=== PATIENT | male | born 1990 | race Caucasian/White ===

== ENCOUNTER 2017-01-01 18:09 | Emergency (ER) | payer OTHER ==
[~2017-01-01] VITALS: Ht 180.3 cm; Wt 99.8 kg
[~2017-01-01 18:09] MED LIST: AMOX500C2 PO; ONDA4TAB8 SL; RT-ALBUINH IH
[2017-01-01] MEDS ORDERED: FEXO-14 PO (18:51)
--- NOTE | 2017-01-01 19:41 | Diagnostic Imaging Report ---
INDICATION: Fall with right knee pain. TECHNIQUE: AP, oblique, and lateral views of the right knee are obtained. FINDINGS: No fracture or acute bony abnormality is seen. There is no joint effusion. IMPRESSION: Negative right knee. Dictated by: Dictated on workstation # [id number]
[2017-01-01] MEDS ORDERED: NAPR500T3 PO (19:44)
--- NOTE | 2017-01-01 19:44 | ED Lower Extremity ---
General Chief Complaint: Trauma-Non Activation Stated Complaint: FELL AT WORK/R LEG KNEE PAIN Nursing Triage Note: patient reports slipping in oil at work at 1600. patient reports R knee pain radiates down to R foot. patient denies hitting head or LOC. denies taking medication for pain Nursing Sepsis Screen: No Definite Risk Source: patient History of Present Illness Time seen by provider: 19:22 Initial Comments PT STATES HE SLIPPED ON OIL AT WORK TODAY AROUND 1630--WORKS AT [employer] STATES HE TWISTED RIGHT KNEE, WAS HOLDING ON TO A RAIL, AND DID NOT FALL. NO PRIOR INJURY TO THIS KNEE NO PARESTHESIAS OR MOTOR DEFICITS NO OTHER INJURIES OR AREAS OF PAIN PCP: NONE Allergies and Home Medications Allergies Coded Allergies: diphenhydramine (Unverified Allergy, Unknown, 05/21/16) Home Medications Fexofenadine HCl 60 Mg Tablet, 60 MG PO, (Reported) Naproxen 500 Mg Tablet, 500 MG PO BID, #20 Prescribed by: JESSY BURNS on 01/01/171943 Constitutional: no symptoms reported Musculoskeletal: see HPI Skin: no symptoms reported Psychiatric/Neurological: No Symptoms Reported Past Wiopzyh-Awljlw-Lfnlyy Hx Patient Social History Alcohol Use: Denies Use Recreational Drug Use: No Smoking Status: Never a Smoker Recent Foreign Travel: No Contact w/Someone Who Travel: No Recent Infectious Disease Expo: No Recent Hopitalizations: No Seasonal Allergies Seasonal Allergies: No Surgeries HX Surgeries: No Respiratory Hx Respiratory Disorders: Yes Respiratory Disorders: Asthma Cardiovascular Hx Cardiac Disorders: No Neurological Hx Neurological Disorders: No Reproductive System Hx Reproductive Disorders: No Genitourinary Hx Genitourinary Disorders: No Gastrointestinal Hx Gastrointestinal Disorders: No Musculoskeletal Hx Musculoskeletal Disorders: No Endocrine Hx Endocrine Disorders: No HEENT HX ENT Disorders: No Cancer Hx Cancer: No Psychosocial Hx Psychiatric Problems: No Integumentary HX Skin/Integumentary Disorder: No Blood Transfusions Hx Blood Disorders: No Physical Exam Vital Signs Vital Sign - Last 12Hours 01/01/17 18:47 Temp 98.0 Pulse 86 Resp 18 B/P (MAP) 137/98 Pulse Ox 99 Capillary Refill : Less Than 3 Seconds General Appearance: WD/WN, no apparent distress Hips: bilateral hip non-tender Legs: bilateral leg non-tender Knees: left knee normal inspection, right knee bone tenderness, right knee soft tissue tenderness, right knee swelling (SLIGHT), right knee other (UNABLE TO DETERMINE LIGAMENT LAXITY DUE TO PT DISCOMFORT. HAS DIFFUSE TENDERNESS TO ENTIRE KNEE BOTH ANTERIOR OR POSTERIOR. ) Ankles: bilateral ankle normal inspection Feet: bilateral foot normal inspection Neurologic/Tendon: normal sensation, normal motor functions Neurologic/Psychiatric: lens hardener II-XII nml as tested, no motor/sensory deficits, alert, normal mood/affect, oriented x 3 Skin: normal color, warm/dry Splinting and Joint Reduction : Stephane wrap: Yes Immobilizers: 24 inch Knee Ordered: Crutches (HAS AT HOME) Progress/Results/Core Measures Results/Orders My Orders Orders - JESSY BURNS DO Knee, Right, 3 Views (01/01/17 19:26) Stephane Bandage (01/01/17 19:40) Crutches (01/01/17 19:40) Knee Immobilizer (01/01/17 19:40) Vital Signs/I&O Vital Sign - Last 12Hours 01/01/17 01/01/17 18:47 19:56 Temp 98.0 98.0 Pulse 86 86 Resp 18 18 B/P (MAP) 137/98 Pulse Ox 99 99 Blood Pressure Mean: 111 Diagnostic Imaging Comments XRAYS RIGHT KNEE--NO ACUTE PROCESS, PER RADIOLOGIST REPORT @ 1942 Reviewed: Reviewed by Me Departure Impression Impression: Primary Impression: Right knee sprain Disposition: 01 HOME, SELF-CARE Condition: Stable Departure-Patient Inst. Referrals: NO,LOCAL PHYSICIAN (PCP/Family) Primary Care Physician Patient Instructions: Knee Immobilizer (DC), Knee Sprain (DC) Add. Discharge Instructions: STEPHANE WRAP, IMMOBILIZER AND CRUTCHES AT ALL TIMES ELEVATE LEG MUCH POSSIBLE ICE TO AREA AT 20 MINUTE INTERVALS FOLLOW UP WITH WORKMAN'S COMP TOMORROW OR THURSDAY All discharge instructions reviewed with patient and/or family. Voiced understanding. Scripts Naproxen (Naproxen) 500 Mg Tablet 500 MG PO BID, #20 TAB Prov: JESSY BURNS DO 01/01/17 JESSY BURNS DO Jan 01, 2017 19:44
[2017-01-01 19:56] VITALS: BP 137/98
== END 2017-01-01 19:56 | disposition home or self-care (01) ==
LOC: EDUNIT# 18:09 → ER 18:12
DX: S83.91XA Sprain of unspecified site of right knee, initial encounter (principal); X50.9XXA Other and unspecified overexertion or strenuous movements or postures, initial encounter; Y92.512 Supermarket, store or market as the place of occurrence of the external cause; Y99.0 Civilian activity done for income or pay
CPT/HCPCS: 73562; 99283

== ENCOUNTER → 2017-01-13 | Outpatient (REF) ==
[~2017-01-13] MED LIST changes: +FEXO-14 PO; +NAPR500T3 PO
--- NOTE | 2017-01-13 16:00 | Diagnostic Imaging Report ---
PROCEDURE: MRI right joint lower extremity without contrast. TECHNIQUE: Multiplanar, multisequence MR imaging of the right knee was performed without contrast. COMPARISON: Right knee radiographs of 01/01/2017. INDICATION: Knee pain after injury. FINDINGS: MENISCI Medial meniscus: Normal. Lateral meniscus: Normal. LIGAMENTS ACL: Intact. PCL: Intact. MCL: Intact. LCL: The lateral collateral ligamentous complex is intact. EXTENSOR MECHANISM The extensor mechanism is intact. CARTILAGE The articular cartilage throughout all three compartments is preserved. Specifically, no acute chondral defect or osteochondral lesion. BONE No fracture, stress fracture or osteonecrosis. SOFT TISSUE: No knee effusion or Sher's cyst. IMPRESSION: 1. No internal derangement. Specifically, no meniscal tear or acute chondral injury. 2. The cruciate and collateral ligaments are intact. 3. No fracture or bone contusion. Dictated by: Dictated on workstation # [id number]
== END | disposition home or self-care (01) ==
LOC: OCC 14:52
PROVIDERS: ATTEND Nurse Practitioner Family
CPT/HCPCS: 73721

== ENCOUNTER 2018-06-15 06:25 | Emergency (ER) | payer OTHER ==
[~2018-06-15] VITALS: Ht 180.3 cm; Wt 90.7 kg
[~2018-06-15 06:25] MED LIST changes: +NAPR-915 PO; -NAPR500T3 PO
--- NOTE | 2018-06-15 07:02 | ED GI ---
General Chief Complaint: Abdominal/GI Problems Stated Complaint: BLOODY DIARRHEA,VOMITING Source of Information: Patient Exam Limitations: No Limitations History of Present Illness Date Seen by Provider: Jun 15, 2018 Time Seen by Provider: 06:45 Initial Comments Patient resists ER by private conveyance with chief complaint of one month of watery loose diarrhea. He says the last couple days he started seeing some red flecks of blood when he wipes and around the stool itself. He does not have a history of hemorrhoids or fissures nor is he having any rectal pain. He says he needs a note for work and wants some answers. He says in the past he was worked up for gallbladder with an ultrasound was negative. He's never had a HIDA scan. He did follow-up with his primary care doctor and they told him that it has been going on long enough to do any stool studies. He is unable to produce a stool sample today. He's not had any objective fevers. He has some nausea and occasional vomiting with it and was given some Zofran from his primary care doctor which worked wonderful for his nausea but it's ran out and now he needs some more. He denies smoking marijuana using recreational drugs. He says he occasionally will have a cigarette and occasionally has a drink with his last alcoholic intake being over a month. No history of medical disease except for childhood asthma for which she does not use anything now. No surgeries on the abdomen. No history of trauma. Allergies and Home Medications Allergies Coded Allergies: diphenhydramine (Unverified Allergy, Unknown, 05/21/16) Home Medications Naproxen 500 Mg Tablet, 500 MG PO BID Prescribed by: JESSY BURNS on 01/01/171943 Patient Home Medication List Home Medication List Reviewed: Yes Review of Systems Review of Systems Constitutional: No chills, No dizziness EENTM: No Blurred Vision, No Double Vision Respiratory: Denies Cough, Denies Shortness of Air Cardiovascular: Denies Chest Pain, Denies Edema Gastrointestinal: Denies Constipated; Diarrhea, Nausea; Denies Poor Appetite, Denies Poor Fluid Intake; Vomiting Genitourinary: Denies Discharge, Denies Drainage Past Yybtdxo-Fxwwkl-Iwmrcl Hx Patient Social History Alcohol Use: Occasionally Uses Recreational Drug Use: No Smoking Status: Current Someday Smoker Recent Foreign Travel: No Contact w/Someone Who Travel: No Recent Hopitalizations: No Seasonal Allergies Seasonal Allergies: No Past Medical History Surgeries: No Respiratory: Yes Asthma Cardiac: No Neurological: No Reproductive Disorders: No Gastrointestinal: No Musculoskeletal: No Endocrine: No Cancer: No Psychosocial: No Integumentary: No Blood Disorders: No Physical Exam Vital Signs Vital Signs - First Documented 06/15/18 06:37 Temp 98.8 Pulse 77 Resp 20 B/P (MAP) 142/88 (106) Pulse Ox 98 O2 Delivery Room Air Capillary Refill : Height/Weight/BMI Height: 5'11" Weight: 220lbs. oz. 99.664357rg; BMI Method:Stated General Appearance: WD/WN, no apparent distress HEENT: PERRL/EOMI, normal ENT inspection, TMs normal, pharynx normal (mucous membranes are moist) Respiratory: no respiratory distress, no accessory muscle use Cardiovascular: normal peripheral pulses, regular rate, rhythm, no edema Peripheral Pulses: 2+ Radial Pulses (R), 2+ Radial Pulses (L) Gastrointestinal: normal bowel sounds, soft, tenderness (mild generalized tenderness), other (negative for Palma's point tenderness, Rovsing sign, psoas sign, mesenteric signs, Palma's sign) Progress/Results/Core Measures Results/Orders Vital Signs/I&O 06/15/18 06:37 Temp 98.8 Pulse 77 Resp 20 B/P (MAP) 142/88 (106) Pulse Ox 98 O2 Delivery Room Air Progress Progress Note : Time: 07:01 Progress Note IBS versus IBD versus potential biliary hypokinesis etc. We'll recommend that he follow up outpatient with primary care or a general surgeon to consider a HIDA scan and then possibly colonoscopy for his vague symptoms. He is unable to produce a stool sample today but we will send him with outpatient orders in case he can produce a stool to check a stool sample. We will refill his nausea medicine and give him a day off work. Departure Impression Primary Impression: Diarrhea Qualified Codes: R19.7 - Diarrhea, unspecified Disposition: 01 HOME, SELF-CARE Condition: Stable Departure-Patient Inst. Decision time for Depature: 07:04 Referrals: [facility] (PCP/Family) Primary Care Physician JONY GAGNON DO Patient Instructions: Irritable Bowel Syndrome (DC) Add. Discharge Instructions: Please contact your primary care doctor or Dr. Gagnon, General Surgery to set up consultation and possible HIDA scan and/or colonoscopy to workup your diarrhea as necessary. If you can produce a stool sample and bring it to the lab for outpatient testing this will be helpful. supplier quality the Zofran take one tablet every 6 hours as needed for nausea or vomiting. If you're having watery diarrhea you may use Imodium 2 tablets followed by one more tablet every 4 hours until the watery diarrhea ceases. Drink lots of fluids especially with electrolytes such as a sports drink. If you begin to have fevers or intractable abdominal pain return to the ER for further evaluation. 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 Increase your dietary fiber intake of green, leafy, woody, stem-y vegetables. All discharge instructions reviewed with patient and/or family. Voiced understanding. Scripts Ondansetron (Ondansetron Odt) 4 Mg Tab.rapdis 4 MG PO Q6H PRN for NAUSEA/VOMITING, #15 TAB 0 Refills Prov: RADHA URBINA 06/15/18 Work/School Note: Work Release Form Date Seen in the Emergency Department: Jun 15, 2018 Return to Work: Jun 16, 2018 Restrictions: No Restrictions Copy Copies To 1: ANN-MARIE NEELY DO; JONY GAGNON DO RADHA URBINA Jun 15, 2018 07:02
[2018-06-15] MEDS ORDERED: ONDA4TAB11 PO (07:07)
[2018-06-15 07:09] VITALS: BP 142/88
== END 2018-06-15 07:10 | disposition home or self-care (01) ==
LOC: EDUNIT# 06:25 → ER 06:29
DX: R19.7 Diarrhea, unspecified (principal); J45.909 Unspecified asthma, uncomplicated; F17.210 Nicotine dependence, cigarettes, uncomplicated; Z88.8 Allergy status to other drugs, medicaments and biological substances
CPT/HCPCS: 99282

== ENCOUNTER 2018-06-28 08:30 | Outpatient (CLI) | payer SELFPAY ==
[~2018-06-28] VITALS: Ht 180.3 cm; Wt 90.7 kg
[~2018-06-28 08:30] MED LIST changes: +ONDA4TAB11 PO
[2018-06-28] MEDS ORDERED: DICY20TA10 PO (08:56)
[2018-06-29] MEDS ORDERED: PANT40TA2 PO (13:14)
== END 2018-06-28 08:56 | disposition home or self-care (01) ==
LOC: PREOP 08:30
PROVIDERS: ATTEND Surgery
DX: Z01.818 Encounter for other preprocedural examination (principal)

== ENCOUNTER 2018-06-29 09:57 | Day surgery (SDC) | payer OTHER ==
[~2018-06-29] VITALS: Ht 180.3 cm; Wt 90.7 kg
[~2018-06-29 09:57] MED LIST changes: +DICY20TA10 PO
[2018-06-29 10:00] VITALS: BP 135/82
[2018-06-29] MEDS ORDERED: LACTATED RINGERS 1,000 ML IV ONE (10:09)
[2018-06-29] MEDS ORDERED: LACTATED RINGERS 1,000 ML IV STA (10:12)
[2018-06-29] MEDS ORDERED: HURRICAINE EXT TUBE (BENZOCAINE) XX PRN (10:15)
[2018-06-29] MEDS ORDERED: PROPOFOL INJECTION 50 ML IV ONE (10:43)
[2018-06-29] MEDS ORDERED: MIDAZOLAM 2 MG/2 ML (VERSED) VIAL ONE (10:44)
[2018-06-29] MEDS ORDERED: HURRICAINE EXT TUBE (BENZOCAINE) ONE (12:28)
--- NOTE | 2018-06-29 12:32 | Progress Note-Pre Operative ---
Pre-Operative Progress Note H&P Reviewed The H&P was reviewed, patient examined and no changes noted. Date Seen by Provider: Jun 29, 2018 Time Seen by Provider: 12:32 Date H&P Reviewed: Jun 29, 2018 Time H&P Reviewed: 12:32 Pre-Operative Diagnosis: epigastric abdominal pain , blood in stool, diarrhea JONY GAGNON DO Jun 29, 2018 12:32
[2018-06-29] MEDS ORDERED: PANT40TA2 PO (13:14)
--- NOTE | 2018-06-29 13:15 | Discharge Inst-Simple/Standard ---
Discharge Inst-Standard Discharge Medications New, Converted or Re-Newed RX: Transmitted to Pharmacy Patient Instructions/Follow Up Plan of Care/Instructions/FU: 2 weeks Juwan Activity as Tolerated: Yes Discharge Diet: Regular Diet JONY GAGNON DO Jun 29, 2018 13:15
--- NOTE | 2018-06-29 13:22 | Progress Note-Post Operative ---
Post-Operative Progess Note Surgeon (s)/Bagger Meat (s) Surgeon JONY GAGNON DO Bagger Meat: na Pre-Operative Diagnosis epigastric abdominal pain , blood in stool, diarrhea Post-Operative Diagnosis esophagitis, small ulcerations rectum, Procedure & Operative Findings Date of Procedure 06/29/18 Procedure Performed/Findings egd c biopsies and colonoscopy with cold biopsies rectum Anesthesia Type per jet handler Estimated Blood Loss Estimated blood loss (mL): none Specimens/Packing Specimens Removed antrum, ge junction ,rectum JONY GAGNON DO Jun 29, 2018 13:22
[2018-06-29 13:35] VITALS: BP 124/64
[2018-06-29 14:05] VITALS: BP 117/81
[2018-06-29 14:29] VITALS: BP 117/81
--- NOTE | 2018-06-29 14:30 | Anesthesia-General Post-Op ---
General Patient Condition Mental Status/LOC: Same as Preop Cardiovascular: Satisfactory Nausea/Vomiting: Absent Respiratory: Satisfactory Pain: Controlled Complications: Absent Post Op Complications Complications None Follow Up Care/Instructions Patient Instructions None needed. Anesthesia/Patient Condition Patient Condition Patient is doing well, no complaints, stable vital signs, no apparent adverse anesthesia problems. No complications reported per nursing. CANDIDO STUBBS CRNA Jun 29, 2018 14:30
--- NOTE | 2018-06-29 15:24 | OPERATIVE REPORT ---
DATE OF SERVICE: 06/29/2018 PREOPERATIVE DIAGNOSIS: Epigastric abdominal pain, blood in stools, diarrhea. POSTOPERATIVE DIAGNOSIS: Esophagitis, , small ulcerations rectum. PROCEDURE: EGD with biopsies and colonoscopy with cold biopsies rectum. SURGEON: Jony Echeverria DO ANESTHESIA: Per ORAL AND MAXILLOFACIAL PATHOLOGIST. ESTIMATED BLOOD LOSS: None. COMPLICATIONS: None. SPECIMENS: Antrum, GE junction and rectum. INDICATIONS: The patient is a 28-year-old male, who has been having some epigastric abdominal pain, blood in stools and diarrhea. The patient understands risks and benefits of procedure and wished to proceed with procedure. Consent was signed on the chart. DESCRIPTION OF PROCEDURE: The patient was taken to the endoscopy suite, placed in left lateral recumbent position. Timeout was performed. Scope was inserted in mouth, down the esophagus, stomach into the duodenum without difficulty. There were no polyps, mass or ulceration of the duodenum. Scope was slowly retracted back into the stomach noting no other pathology. The stomach had just some slight erythematous changes. Biopsy of the antrum was obtained. No polyps, masses or ulcerations. Scope was retroflexed noting no other pathology. Scope was returned to its normal position. Slowly withdrawn to the distal esophagus had some erythematous changes, which was consistent with esophagitis. Biopsy was obtained. Scope was then slowly retracted back noting no other pathology. Digital rectal exam was performed. There is some slight hemorrhoidal disease. No polyps, mass or ulcerations. The scope was inserted in the rectum and advanced all the way to the cecum with minimal difficulty. There were no polyps, mass or ulcerations within the cecum, ascending, transverse, descending and sigmoid colon. Once in the rectum, there were some small ulcerations in the rectum and there was no active bleeding. No polyps, masses present. The ulcerations are approximately 1 to 2 mm in diameter. A couple of cold biopsies were obtained of these. Scope was retroflexed noting no other pathology. Scope was returned to its normal position, slowly withdrawn until completely removed. The patient tolerated the procedure well without any complications and taken to recovery room in stable condition. RECOMMENDATIONS: The patient will be started on Protonix 40 mg daily. We will see what his biopsies come back and discuss in 2 weeks. If he has any problems prior to that, he will be reevaluated at that time. Further recommendations pending biopsy results. Job ID: [id number] DocumentID: [id number] Dictated Date: 06/29/2018 13:21:39 Export Documents Clerk Date: 06/29/2018 15:23:51 Dictated By: JONY ECHEVERRIA DO
== END 2018-06-29 14:29 | disposition home or self-care (01) ==
LOC: ENDO 09:57
PROVIDERS: ATTEND Surgery
DX: K62.6 Ulcer of anus and rectum (principal); K20.9 Esophagitis, unspecified; R19.7 Diarrhea, unspecified; K92.1 Melena; K21.9 Gastro-esophageal reflux disease without esophagitis; J45.909 Unspecified asthma, uncomplicated; Z87.891 Personal history of nicotine dependence